=== PATIENT | female | born 1980 | race Caucasian/White ===

== ENCOUNTER 2016-08-22 06:53 | Day surgery (SDC) | payer BC ==
[~2016-08-22] VITALS: Ht 170.2 cm; Wt 64.9 kg
[~2016-08-22 06:53] MED LIST: CREATINE100 GM; FENUGREEK PO; FISH OIL 1,001000 M2 PO; MULTI VITAMIN1 EACH PO; PRENATAL COMPL1 EACH PO; VITAMIN D31000 UNI2 PO; VITAMIN D400 UNI1 PO
[2016-08-22 13:07] VITALS: BP 119/65
[2016-08-22] MEDS ORDERED: NORCO 5-325 TA1 EACH PO (15:48)
[2016-08-22 15:58] VITALS: BP 119/65
== END 2016-08-22 16:30 | disposition home or self-care (01) ==
LOC: OR 06:53 → TBA 06:54 → OR 15:26
DX: K43.0 Incisional hernia with obstruction, without gangrene (principal); K42.0 Umbilical hernia with obstruction, without gangrene
CPT/HCPCS: 50010; 50101; 50386; 50417; 54118; 56524; 56525; 56526; 62110; 62850; 70005